=== PATIENT | female | born 1985 | race African-American/Black ===

== ENCOUNTER 2021-09-19 03:52 | Emergency (ER) | payer BC ==
[~2021-09-19] VITALS: Ht 182.9 cm; Wt 135.5 kg
[2021-09-19] VITALS (7 sets, daily range): BP systolic 139–148; BP diastolic 95–104
[~2021-09-19 03:52] MED LIST: HYZAAR1 TA1 PO; LORTAB5 PO; OMEPRAZOLE20 M1 PO
[2021-09-19] MEDS ORDERED: NUVARING (04:11)
[2021-09-19 04:29] LABS: HCG SERUM/URINE (NEG/POS) NEGATIVE (NEGATIVE)
[2021-09-19 04:31] LABS: HEMATOCRIT 38.5 % (37.0-47.0); HEMOGLOBIN 11.9 g/dl (12.0-16.0); IMMATURE GRANULOCYTES 0.5 % (0.0-5.0); MEAN CORPUSCULAR HGB 22.2 pG CALC (26.0-32.0); MEAN CORPUSCULAR HGB CONC 30.9 g/dL CAL (32.0-36.0); NEUT# 2.71 thou/uL (2.00-7.15); RED BLOOD COUNT 5.35 mill/uL (4.20-5.60); RED CELL DISTRI WIDTH 14.6 % (11.5-15.5)
[2021-09-19 04:32] LABS: URINE BILIRUBIN - DIPSTICK NEGATIVE (NEGATIVE); URINE BLOOD DIPSTICK NEGATIVE (NEGATIVE); URINE COLOR YELLOW; URINE GLUCOSE - DIPSTICK NEGATIVE (NEGATIVE); URINE KETONE NEGATIVE (NEGATIVE); URINE LEUK ESTERASE TRACE (NEGATIVE); URINE PROTEIN - DIPSTICK NEGATIVE (NEG-TRACE); URINE SPECIFIC GRAVITY 1.015
[2021-09-19 04:34] LABS: URINE NITRITE - DIPSTICK NEGATIVE (Negative)
[2021-09-19] MEDS ORDERED: PAXLOVID PO (04:45)
[2021-09-19 04:46] LABS: ALBUMIN 4.1 g/dL (3.2-5.0); ALKALINE PHOSPHATASE 87 u/l (38-126); ANION GAP 10 (6-22 (CALC)); BILIRUBIN, TOTAL 0.5 mg/dL (0.0-1.4); BUN 8 mg/dL (7-17); BUN/CREATININE RATIO 9 (12-20 (CALC)); CARBON DIOXIDE 23 mmol/l (22-30); CHLORIDE 107 mmol/l (95-108); GFR FOR AFR.AMER. > 60 ML/MIN (>=60 (CALC)); GFR OTHER RACES > 60 ML/MIN (>=60 (CALC)); POTASSIUM 4.3 mmol/l (3.5-5.1); SGOT/AST 23 u/l (14-36); SODIUM 136 mmol/l (137-146); TOTAL PROTEIN 7.8 g/dL (6.3-8.2)
[2021-09-19] MEDS ORDERED: NAPROXEN500 MG PO (05:21)
== END 2021-09-19 05:53 | disposition home or self-care (01) | DRG 179 ==
LOC: ED 03:52
PROVIDERS: Emergency Medicine
DX: U07.1 COVID-19 (principal)